=== PATIENT | female | born 2000 | race Two or more races ===

== ENCOUNTER 2021-08-05 15:55 | Emergency (ER) | payer MEDICAID, OTHER ==
[~2021-08-05] VITALS: Ht 172.7 cm; Wt 77.1 kg
[2021-08-05 17:45] VITALS: BP 108/73
== END 2021-08-05 17:50 | disposition home or self-care (01) ==
LOC: ER 15:55
DX: S01.81XA Laceration without foreign body of other part of head, initial encounter (principal); W51.XXXA Accidental striking against or bumped into by another person, initial encounter; Y93.89 Activity, other specified; Y92.89 Other specified places as the place of occurrence of the external cause; Y99.8 Other external cause status
CPT/HCPCS: 12011; J2001

== ENCOUNTER 2022-09-13 14:21 | Emergency (ER) | payer OTHER ==
[~2022-09-13] VITALS: Ht 165.1 cm; Wt 85.5 kg
[2022-09-13 15:32] VITALS: BP 124/90
[2022-09-13] MEDS ORDERED: KETOROLAC TROMETH 60MG/2ML VIAL IM ONE (15:45)
[2022-09-13] MEDS ORDERED: IBUP800T26 PO (16:52)
[2022-09-13] MEDS ORDERED: HYDR-4902 PO (16:52)
== END 2022-09-13 16:56 | disposition home or self-care (01) ==
LOC: ER 14:21
DX: S16.1XXA Strain of muscle, fascia and tendon at neck level, initial encounter (principal); Y04.2XXA Assault by strike against or bumped into by another person, initial encounter; Y93.89 Activity, other specified; Y92.89 Other specified places as the place of occurrence of the external cause; Y99.8 Other external cause status
CPT/HCPCS: 72040; 96372; 99283; J1885